=== PATIENT | female | born 1950 | race Caucasian/White ===

== ENCOUNTER 2016-03-18 15:20 | Emergency (ER) | payer OTHER ==
[~2016-03-18] VITALS: Ht 170.2 cm; Wt 111.4 kg
[~2016-03-18 15:20] MED LIST: ALBU8.5H4 IH; AMIT10TA2 PO; ASCO500T PO; ASP81TEC; CELE200 PO; CLAR10T PO; COLLAGEN; Calcium; Estroven; FISH; LEVO125T2 PO; SERT100T PO; Super B Complex; TRAZ-151 PO; Tylenol arthritis; VITE PO; ZOC20 PO; [UNRECOGNIZED DRUG - CODE]; [UNRECOGNIZED DRUG - OTHER]; [UNRECOGNIZED DRUG - OTHER]; centrum silver; flax seed oil
[2016-03-18 15:26] VITALS: BP 187/113; PULSE 50; RESP 18; O2SAT 99
[2016-03-18 16:05] VITALS: BP 173/99; PULSE 50; RESP 16; O2SAT 97
[2016-03-18 16:09] LABS: BASOPHILS % (AUTO) 0.5 % (0-3); EOSINOPHILS % (AUTO) 3.2 % (0-5); MONOCYTES % (AUTO) 7.9 % (4-12); Mean Corpuscular Hemoglobin 25.7 pg (27.0-35.0); Mean Corpuscular Volume 79.3 fL (81-100); NEUTROPHILS % (AUTO) 67.7 % (40-74); Platelet Count 250 bil/L (150-400)
--- NOTE | 2016-03-18 16:12 | ED.REPORT ---
HPI-General Illness Date of Service Mar 18, 2016 ED Provider: Arlet Hopper MD Ms. Linton is a pleasant 56-year-old female with past medical history of chronic headache, hypertension (currently unmedicated), hypothyroidism, asthma presents today from urgent care where she was seen for a headache 2 days. Currently she states her headache is at minimal level 5 out of 10 though has increased over the last few days and the symptoms intermittent. She also endorses that she has had hypertension over the last 2 days with home blood pressures reported be 150/110. She states that her blood pressure is never been this high before in fact she was recently taken off her hypertensive medications by her primary care provider. She does state that she has also had some mild intermittent chest pain starting 2 days ago which comes and goes. At the onset of these symptoms 2 days ago she states that she got up out of bed and felt dizzy as if she could not get up or move appropriately and she is felt (off) ever since. She does not report any specific neuromotor deficits though endorses generalized weakness and difficulty accomplishing ADLs. Patient is a and O 4 with no further focal neurological deficits. Of note patient takes albuterol, duloxetine, sertraline, levothyroxine. She states that she has been taking her medications as indicated though could not tell me which medication she takes, why she takes them though endorses that she self administers these medications. Nursing Notes Stated Complaint: HEADACHE, HIGH BLOOD PRESSUR/SENT FROM URGENT CARE Chief Complaint: Neuro Symptoms/ Deficits Nursing Notes Reviewed: Yes Allergies: Coded Allergies: No Known Drug Allergies (Verified Allergy, Unknown, 12/02/13) Scheduled ([centrum silver]) AM ([Evening Primose]) 1,000 MG AM ([Super B Complex]) AM ([Calcium]) 1,500 MG AM ([flax seed oil]) 1,000 MG AM ([Tylenol arthritis]) 650 MG PRN ([collagen + C]) AM ([Glucosamine/MSM]) AM Albuterol-Expunged Drug, Do Not Renew! (Albuterol-Expunged Drug, Do Not Renew!) 8.5 Gm Hfa.aer.ad 2 PUFFS IH PRN Amitriptyline-Expunged Drug, Do Not Renew! (Amitriptyline-Expunged Drug, Do Not Renew!) 10 Mg Tablet 20 MG PO AM Ascorbic Acid-Expunged Drug, Do Not Renew! (Vitamin C-Expunged Drug, Do Not Renew!) 500 Mg Tablet 1,000 MG PO AM Aspirin-Expunged Drug, Do Not Renew! (Aspirin EC-Expunged Drug, Do Not Renew!) 81 Mg Tablet AM Celecoxib-Expunged Drug, Do Not Renew! (Celecoxib-Expunged Drug, Do Not Renew!) 200 Mg Capsule 200 MG PO BID Fish Oil-Expunged Drug, Do Not Renew! (Fish Oil-Expunged Drug, Do Not Renew!) Cap AM Hydrochlorothiazide (Hydrochlorothiazide) 12.5 Mg Tablet 25 MG PO DAILY Levothyroxine-Expunged Drug, Do Not Renew! (Levoxyl-Expunged Drug, Do Not Renew! ) 125 Mcg Tablet 125 MCG PO AM Loratadine-Expunged Drug, Do Not Renew! (Loratadine-Expunged Drug, Do Not Renew! ) 10 Mg Tablet 10 MG PO AM Sertraline-Expunged Drug, Choose New Med! (Sertraline-Expunged Drug, Choose New Med!) 100 Mg Tablet 150 MG PO BID Simvastatin-Expunged Drug, Choose New Med! (Simvastatin-Expunged Drug, Choose New Med!) 20 Mg Tablet 20 MG PO HS Tocopherol-Expunged Drug, Do Not Renew! (Vitamin E-Expunged Drug, Do Not Renew! ) 400 Unit Cap 2,400 UNIT PO AM Trazodone-Expunged Drug, Do Not Renew! (Trazodone-Expunged Drug, Do Not Renew!) 50 Mg Tablet 25 MG PO HS Miscellaneous Medications ([Estroven]) General Time Seen by MD: 15:46 Chief Complaint Headache Review of Systems Full Review of Systems Constitutional: Denies: Chills, Fever Eyes: Denies: Blurred bilateral, Eye pain bilateral, Photophobia, Visual loss bilateral Ears / Nose / Throat: Denies: Ear drainage bilateral, Ear ringing bilateral, Hearing loss bilateral, Nasal congestion, Nose bleeding, Sinus problem, Throat pain, Voice change Respiratory: Reports: Non-productive cough, Denies: Shortness of breath, Wheezing Cardiovascular: Reports: Chest pain, Palpitations, Denies: Edema GI: Denies: Abdominal pain, Bloody/tarry stool, Constipation, Diarrhea, Nausea , Vomiting Female: Denies: Dysuria, Flank pain, Hematuria, Incontinence Neurologic: Reports: Dizziness, Headache, Lightheaded, Problem walking (walks with walker), Denies: Abnormal movement, Bladder dysfunction, Change LOC, Confusion, Focal weakness, Numbness, Seizure, Shaking, Slurred speech, Spinning sensation, Syncope, Vision change, Weakness Psychiatric: Denies: Change mental status, Confusion Physical Exam General: No acute distress, well-developed, well-nourished, appropriately interactive HEENT: Normocephalic, atraumatic. External ears without defect. Pupils equal, round, and reactive to light and accommodation. Anicteric sclerae, moist conjunctivae, and no lid lag. Oropharynx free of erythema and cobble stoning with moist mucosa. Neck: Supple with full range of motion. No jugular venous distension. No bruits. No lymphadenopathy or thyromegaly. Cardiovascular: Bradycardic rate with regular rhythm with no murmurs, rubs, or gallops appreciated Pulmonary: Clear to auscultation bilaterally with no crackles, wheezes, or rhonchi. Normal respiratory effort with no use of accessory muscles. Abdomen: Bowel tones present. Soft, nontender, nondistended. Extremities: No clubbing, cyanosis. Mild lower extremity edema nonpitting extending proximately to ankle. Skin: Normal temperature, turgor, and texture. Neurological: Cranial nerves grossly intact. Normal muscle strength, tone, and bulk. Reflexes, coordination, and sensory function within normal limits. Walks with walker Psychiatric: Normal mood and affect. Alert and oriented to person, place, and time. Vital Signs Vital Signs Date Time Temp Pulse Resp B/P Pulse Ox O2 Delivery O2 Flow Rate FiO2 03/18/16 19:11 48 16 165/104 98 Room Air 03/18/16 17:26 49 21 184/112 99 Nasal Cannula 2 03/18/16 16:05 50 16 173/99 97 Room Air 03/18/16 15:26 36.1 50 18 187/113 99 Room Air Initial VS: Reviewed Interpretation & Diagnostics X-RAY CHEST ONE VIEW, PORTABLE IMPRESSION: No acute disease Lab Results Interpretation Result Diagram: 03/18/16 1600 03/18/16 1600 Test 03/18/16 16:00 03/18/16 17:14 White Blood Count 7.6th/mm3 (3.8-10.1) Red Blood Count 5.22mil/mm3 (3.90-5.20) Hemoglobin 13.4g/dL (12.0-15.6) Hematocrit 41.4% (35.0-46.0) Mean Corpuscular Volume 79.3fL (81-100) Mean Corpuscular Hemoglobin 25.7pg (27.0-35.0) Mean Corpuscular Hemoglobin Concent 32.4% (32.0-37.0) Red Cell Distribution Width 15.2% (12.3-15.4) Platelet Count 250bil/L (150-400) Neutrophils (%) (Auto) 67.7% (40-74) Lymphocytes (%) (Auto) 20.6% (14-46) Monocytes (%) (Auto) 7.9% (4-12) Eosinophils (%) (Auto) 3.2% (0-5) Basophils (%) (Auto) 0.5% (0-3) D-Dimer < 0.5mg/L (<0.50) Sodium Level 137mEq/L (134-144) Potassium Level 4.7mEq/L (3.5-5.2) Chloride Level 100mEq/L (97-108) Carbon Dioxide Level 25mmol/L (18-29) Blood Urea Nitrogen 16mg/dL (8-27) Creatinine 0.99mg/dL (0.57-1.00) Estimat Glomerular Filtration Rate 81mL/min (>59) Glucose Level 89mg/dL (60-99) Calcium Level 9.5mg/dL (8.5-10.1) Magnesium Level 2.1mg/dL (1.6-2.6) Total Bilirubin 0.5mg/dL (0.0-1.2) Aspartate Amino Transf (AST/SGOT) 24U/L (0-50) Alanine Aminotransferase (ALT/SGPT) 19U/L (0-32) Alkaline Phosphatase 89U/L (25-165) Troponin T < 0.010ug/L (0.0-0.011) Total Protein 7.3g/dL (6.4-8.4) Albumin 3.9g/dL (3.4-5.0) Urine Color Yellow (YELLOW) Urine Appearance Clear (CLEAR,HAZY) Urine pH 6.0 (5.0-8.0) Urine Specific [place] <1.005 (1.003-1.035) Urine Protein Negativemg/dL (NEG,TRACE) Urine Glucose (UA) Negativemg/dL (NEGATIVE) Urine Ketones Negativemg/dL (NEGATIVE) Urine Occult Blood Negative (NEGATIVE) Urine Nitrite Negative (NEGATIVE) Urine Bilirubin Negative (NEGATIVE) Urine Urobilinogen Normalmg/dL (NORMAL) Urine Leukocyte Esterase Negative (NEGATIVE) Urine RBC 0-2/hpf (0-2) Urine WBC 0-5/hpf (0-5) Urine Epithelial Cells Occasional/hpf (NONE-MOD) Urine Crystals None seen (NONE SEEN) Urine Bacteria None/hpf (NONE-FEW) Urine Hyaline Casts None/lpf (NONE) Urine Granular Casts None seen (NONE SEEN) Urine Waxy Casts None seen (NONE SEEN) Urine Red Blood Cell Casts None seen (NONE SEEN) Urine White Blood Cell Casts None seen (NONE SEEN) Urine Mucus None seen (None Seen) Urine Trichomonas None seen (NONE SEEN) Urine Yeast None (NONE SEEN) Urinalysis Comment None Urine Culture Reflexed Not indicated ECG Interpretation ECG Interpretation: Sinus bradycardia, nonspecific interventricular conduction delay Interpreted by: ED physician Re-Eval/Medical Decision Med Decision/Clinical Course EKG and blood work showed no evidence of cardiac pathology, chest x-ray showed no acute disease. D-dimer negative. CBC showed no evidence of infection though did show decreased RBCs as well as a low MCH and MCV of unknown etiology. Patient did remain hypertensive throughout ED stay though SBP fell from low 200s to 160 by time of discharge and DBP remained above 100 throughout stay. Patient's headache was chronic in nature, this was not described as "the worst headache of my life" she had no accompanying neurological deficits or visual disturbances. The index for suspicion of intracranial bleed was very low and there was no evidence of end organ damage. Patient was given IV Lasix while in hospital and a prescription for hydrochlorothiazide to take daily as reduction of hypertension should not be too rapid. She was instructed to follow-up with her primary care provider as soon as possible for continued management. Counseled Regarding: Diagnosis, Lab results, Need for follow-up, When/why to return to ED Discharge & Departure Primary Impression: Hypertension Hypertension type: essential hypertension Hypertension goal: less than 140/ 90 Qualified Code: I10 - Essential (primary) hypertension Disposition: Home Discharge Condition All VS Reviewed: Yes Condition: Stable Additional Instructions: The tests we did which were looking at your heart did not show any evidence of a heart attack. This occlusion was supported with the blood work we did which also did not show any sign of a heart attack. We also do not believe that you are having a pulmonary embolism or any bleeding in your brain. Throughout her emergency department stay you did remain hypertensive, it is important that we not lower your blood pressure too low too fast. I am starting you on a diuretic (a water pill), hydrochlorothiazide. This will increase the amount that you urinate which will slowly lower your blood pressure. It is very important that he follow up with your primary care provider within the next week if not sooner regarding this emergency department visit and continue management of your hypertension. If you develop increase in your headaches, or feel that it may be the worst headache you have ever experienced, visual disturbances, chest pain or pressure , shortness of breath nausea vomiting that will not go away dizziness, lightheadedness or any other concerning symptoms please do return to urgent care or the emergency department for additional evaluation. Referrals: Adenike Ortiz PA-C (PCP) Attending Statement seen and examined agree with plan as above hypertension, start HCTZ with close out pt follow up no evidence STEMI, acute renal failure or CVA return if worse. copies to: Adenike Ortiz PA-C, GILES A DO Mar 18, 2016 16:12 Arlet Hopper MD Mar 18, 2016 18:02
[2016-03-18 16:44] LABS: TROPONIN T < 0.010 ug/L (0.0-0.011)
[2016-03-18 16:45] LABS: Magnesium 2.1 mg/dL (1.6-2.6)
--- NOTE | 2016-03-18 16:51 | DRSVH ---
PROCEDURE: X-RAY CHEST ONE VIEW, PORTABLE ([id number]) INDICATIONS: CHEST PAIN TECHNIQUE: One view of the chest was acquired. COMPARISON: [facility], CR, XR CHEST 2VW, 05/19/2015, 14:48. FINDINGS: Surgical changes and devices: None. Lungs and pleura: No pleural effusions or pneumothorax. Lungs are clear. Mediastinum: Mediastinal contours appear normal. Heart size is normal. Bones and chest wall: No suspicious bony lesions. Overlying soft tissues appear unremarkable. IMPRESSION: No acute disease Dictated by: Ej Schulte M.D. on 03/18/2016 at 16:49 Approved by: Ej Schulte M.D. on 03/18/2016 at 16:49
[2016-03-18 17:26] VITALS: BP 184/112; PULSE 49; RESP 21; O2SAT 99
[2016-03-18 17:44] LABS: COLOR,URINE YELLOW (YELLOW)
[2016-03-18 17:45] LABS: APPEARANCE,URINE CLEAR (CLEAR,HAZY); OCCULT BLOOD,URINE NEGATIVE (NEGATIVE); UROBILINOGEN,URINE NORMAL (NORMAL)
[2016-03-18] MEDS ORDERED: HYDR12.55 PO ×2 (18:26→18:40)
[2016-03-18] MEDS ORDERED: Furosemide 10 mg/mL 2 mL Inj IVPUSH ONE (18:40)
[2016-03-18 19:11] VITALS: BP 165/104; PULSE 48; RESP 16; O2SAT 98
== END 2016-03-18 19:12 | disposition home or self-care (01) ==
LOC: SED 15:20
DX: I10 Essential (primary) hypertension (principal); R51 Headache; R07.9 Chest pain, unspecified; J45.909 Unspecified asthma, uncomplicated; E03.9 Hypothyroidism, unspecified; Z79.82 Long term (current) use of aspirin
CPT/HCPCS: 36415; 71010; 80053; 81000; 83735; 84484; 85025; 85379; 93005; 96374; 99285; J1940